=== PATIENT | female | born 1980 | race Hispanic/Latino ===

== ENCOUNTER 2024-08-14 22:00 | Emergency (ER) | payer BC ==
[~2024-08-14] VITALS: Ht 157.5 cm; Wt 104.3 kg
[2024-08-14 22:07] VITALS: PULSE 98; RESP 16; TEMP 98.3; O2SAT 100
== END 2024-08-14 22:21 | disposition home or self-care (01) ==
LOC: ER 22:15
DX: S61.230A Puncture wound without foreign body of right index finger without damage to nail, initial encounter (principal); E11.9 Type 2 diabetes mellitus without complications; E28.2 Polycystic ovarian syndrome
CPT/HCPCS: 99282